=== PATIENT | female | born 1980 | race Caucasian/White ===

== ENCOUNTER 2016-12-28 07:31 | Day surgery (SDC) | payer BC ==
[~2016-12-28 07:31] MED LIST: Buffered Lidocaine 0.9% SYRIN* 5 ML/SYR SYRINGE INTRADERM ONE; Famotidine IV* 10 MG/ML 2 ML (20 mg) IV ONE
[2016-12-28] MEDS ORDERED: Famotidine IV* 10 MG/ML 2 ML (20 mg) ONE (07:35)
[2016-12-28] MEDS ORDERED: Buffered Lidocaine 0.9% SYRIN* 5 ML/SYR SYRINGE ONE (07:35)
[2016-12-28 08:03] LABS: Hematocrit 39 % (35-47); Mean Corpuscular HGB Conc 33 g/dl (31-36); Mean Corpuscular Hemoglobin 29 pg (27-31); Mean Corpuscular Volume 89 fL (80-97); Mean Platelet Volume 8 um3 (7.4-10.4); Red Blood Count 4.44 10^6/ul (4.0-5.4); Red Cell Distribution Width 14 % (10.5-15); White Blood Count 7.7 10^3/ul (3.5-10.8)
[2016-12-28] MEDS ORDERED: fentaNYL* 50 MCG/ML 2 ML VIAL (100 MCG VIAL) ONE (08:13)
[2016-12-28] MEDS ORDERED: Midazolam* 1 MG/ML 5 ML VIAL (5 MG) ONE (08:13)
[2016-12-28] MEDS ORDERED: Ketorolac INJ* 30 MG/ML 1 ML VIAL ONE (09:43)
[2016-12-28] MEDS ORDERED: Propofol* 10 MG/ML 20 ML BTL IV PUSH ONE (09:43)
[2016-12-28] MEDS ORDERED: Lidocaine 2% PF * 5 ML VIAL ONE (09:43)
[2016-12-28] MEDS ORDERED: Ondansetron INJ* 2 MG/ML VIAL ONE (09:43)
[2016-12-28] MEDS ORDERED: Chloroprocaine 2%* 20 ML VIAL ONE (09:44)
[2016-12-28] MEDS ORDERED: oxyCODONE TAB* 5 MG TAB PO PRN (10:15)
[2016-12-28] MEDS ORDERED: DiMENhydriNATE IV* 50 MG/ML VIAL IV PUSH PRN (10:15)
[2016-12-28] MEDS ORDERED: Acetaminophen TAB* 325 MG PO PRN (10:15)
[2016-12-28] MEDS ORDERED: DOXYcycline CAP(*) 100 MG PO ONE (11:00)
[2016-12-28 11:04] VITALS: BP 118/84
--- NOTE | 2016-12-28 22:24 | OP ---
DATE OF OPERATION: 12/28/16 - [facility] DATE OF : 76 SURGEON: Shelby Merchant MD ANESTHESIOLOGIST: Dr. Rodriguez. ANESTHESIA: Spinal. PRE-OP DIAGNOSIS: Missed at 8 weeks and 3 days. POST-OP DIAGNOSIS: Missed at 8 weeks and 3 days. OPERATIVE PROCEDURE: Dilation, evacuation and curettage. ESTIMATED BLOOD LOSS: 100 cc. URINE OUTPUT: 200 cc of clear yellow urine. FLUIDS: Greater than 500 cc of crystalloid. FINDINGS: Revealed intrauterine contents consistent with products of conception , complete evacuation appreciated with sharp curettage on all 4 quadrants. SPECIMEN: Intrauterine contents to sent fresh for field karyotype given recurrent loss. COMPLICATIONS: None apparent. DISPOSITION: Stable to recovery room. DESCRIPTION OF PROCEDURE: The patient was placed in dorsal lithotomy position, legs were placed in candy cane stirrups. The perineum and vagina were prepped and draped in the sterile standard fashion. The patient was identified with universal protocol for correct procedure, patient and position. Bladder was then drained using a self cath for clear yellow urine 200 cc, but this was then removed. Sterile speculum was then inserted. Cervix was grasped on the anterior lip with a single-tooth tenaculum and dilated with #11 Hegar dilator. A 10-mm curved suction curette was then applied for complete evacuation of intrauterine contents. Sharp curettage was then performed revealing complete evacuation of intrauterine contents with minimal return of blood or tissue. Single-tooth tenaculum was removed, sterile speculum was removed. All sponge, needle, instrument, and blade counts were correct throughout the case. The patient tolerated the procedure well and went to the recovery room in stable condition. The patient's blood type is B-positive. [id number]/[facility] #: [id number] [facility]
== END 2016-12-28 11:24 | disposition home or self-care (01) ==
LOC: OR 07:31
PROVIDERS: ATTEND Obstetrics & Gynecology
DX: O02.1 Missed abortion (principal); Z87.891 Personal history of nicotine dependence; R53.83 Other fatigue
CPT/HCPCS: 36415; 84144; 84443; 85025; 86850; 86900; 86901; 88233; 88262; 88280; 88291; 88305; A9270-GY; J1885; J2250; J2400; J2405; J2704; J3010

== ENCOUNTER 2017-11-30 06:03 | Inpatient (IN) | payer BC ==
[~2017-11-30 06:03] MED LIST changes: -Famotidine IV* 10 MG/ML 2 ML (20 mg) IV ONE; +Metoclopramide TAB* 10 MG PO ONE; +Scopolamine 1.5 mg* PATCH TRANSDERM ONE; +Sodium Citrate/Citric Acid* 15 ML UDC PO ONE
[2017-11-30] MEDS ORDERED: ceFOXitin 2 GM IVPREMIX* 2 GM/50 ML BAG ONE (08:11)
[2017-11-30] MEDS ORDERED: Morphine PF AMP (0.5MG/ML)* 5 MG/10 ML AMP ONE (08:52)
[2017-11-30] MEDS ORDERED: NS 0.9% IVPB ONE ×2 (09:00)
[2017-11-30] MEDS ORDERED: CEFOTAXIME IVPB ONE ×2 (09:00)
[2017-11-30] MEDS ORDERED: NS 0.9% 50 ML* 50 ML with ceFOXitin(*) 2 GM IVPB ONE ×2 (09:00)
[2017-11-30] MEDS ORDERED: Bupivacaine-MPF SPINAL* 7.5 MG/ML - 2ML AMP ONE (09:03)
[2017-11-30] MEDS ORDERED: OXYTOCIN* 10 UNITS/ML 1 ML VIAL ONE (09:35)
[2017-11-30] MEDS ORDERED: oxyCODONE/Acetamin 5/325 MG* TAB PO PRN (09:40)
[2017-11-30] MEDS ORDERED: Naloxone* 0.4 MG/ML 1 ML VIAL IV PRN (09:40)
[2017-11-30] MEDS ORDERED: Ondansetron INJ* 2 MG/ML VIAL IV PRN (09:40)
[2017-11-30] MEDS ORDERED: DiMENhydriNATE IV* 50 MG/ML VIAL IV PUSH PRN (09:40)
[2017-11-30] MEDS ORDERED: Dibucaine 1% 28.35 GM TUBE PR PRN (10:15)
[2017-11-30] MEDS ORDERED: Acetaminophen TAB* 325 MG PO PRN (10:15)
[2017-11-30] MEDS ORDERED: Witch Hazel PAD* JAR TOPICAL PRN (10:15)
[2017-11-30] MEDS ORDERED: Glycerin ADULT SUPP PR PRN (10:15)
[2017-11-30] MEDS ORDERED: Oxytocin in LR* 20 UNITS/1,000 ML BAG IVPB SCH (11:00)
[2017-11-30] MEDS: Ketorolac INJ* 30 MG/ML 1 ML VIAL IV PRN ×2 (11:27→17:52)
[2017-11-30] MEDS: Simethicone TAB* 80 MG TAB.CHEW PO SCH (21:03)
[2017-11-30] MEDS: Docusate CAP* 100 MG PO SCH (21:03)
[2017-12-01] MEDS: Ketorolac INJ* 30 MG/ML 1 ML VIAL IV PRN ×2 (00:03→08:39)
[2017-12-01] MEDS: oxyCODONE/Acetamin 5/325 MG* TAB PO PRN ×5 (04:58→20:41)
[2017-12-01 07:17] LABS: ABS Basophils 0.1 10^3/ul (0-0.2); ABS Eosinophils 0.1 10^3/ul (0-0.6); ABS Monocytes 1.1 10^3/ul (0-0.8); ABS Neutrophils 10.5 10^3/ul (1.5-7.7); ABS Nucleated RBC 0 10^3/ul; Hematocrit 30 % (35-47); Hemoglobin 10.1 g/dl (12.0-16.0); Lymphocyte % 14.8 % (25-47); Mean Corpuscular HGB Conc 33 g/dl (31-36); Mean Corpuscular Hemoglobin 28 pg (27-31); Mean Corpuscular Volume 83 fL (80-97); Mean Platelet Volume 7.2 um3 (7.4-10.4); Nucleated Red Blood Cells % 0; Platelet Count 311 10^3/ul (150-450); Red Blood Count 3.65 10^6/ul (4.00-5.40); Red Cell Distribution Width 15 % (10.5-15); White Blood Count 13.8 10^3/ul (3.5-10.8)
[2017-12-01] MEDS: Docusate CAP* 100 MG PO SCH ×4 (08:39→20:40)
[2017-12-01] MEDS: Simethicone TAB* 80 MG TAB.CHEW PO SCH ×5 (08:39→20:41)
[2017-12-01] MEDS ORDERED: Ferrous Gluconate TAB* 324 MG TAB PO SCH (09:00)
--- NOTE | 2017-12-01 09:23 | OP ---
DATE OF OPERATION: 11/30/17 - ROOM #103 DATE OF : 76 SURGEON: Shelby Merchant MD [employer] SPECIALIST: Lupis Nelson MD ANESTHESIOLOGIST: Greg Victor MD ANESTHESIA: Spinal. PRE-OP DIAGNOSIS: Intrauterine at 39 weeks, desires repeat section. POST-OP DIAGNOSIS: Intrauterine at 39 weeks, desires repeat section, delivered. OPERATIVE PROCEDURE: Repeat low transverse section. FLUIDS: 900 cc of crystalloid. URINE OUTPUT: 500 cc of clear yellow urine. ESTIMATED BLOOD LOSS: 600 cc. FINDINGS: Revealed a vertex female infant with Apgars 9 at one minute and 9 at five minutes. Weight was 7 pounds 13 ounces. Normal-appearing tubes and ovaries. Normal appearing placenta, 3-vessel cord, manual extraction intact. No adhesions. Uterine cavity without evidence of retained membranes or placental tissue. COMPLICATIONS: None apparent. DISPOSITION: Stable to the recovery room. DESCRIPTION OF PROCEDURE: The patient was placed in dorsal lithotomy position. The abdomen was prepped and draped in the sterile standard fashion. The patient was identified with universal protocol. Incision was checked for appropriate level of anesthesia using an Allis. The incision was made at the prior incisional site. This was carried down through the fascia. Fascia was scored in the midline, extended laterally and superiorly using Burrows scissors. The peritoneum was entered bluntly and the peritoneal incision was extended bluntly. The bladder blade was inserted. The lower uterine segment was identified, tented up with an Allis, incised with a scalpel. This was carried down through to the membranes. Bandage scissors were used to extend the uterine incision in the lower uterine segment superiorly and laterally. Amniotomy was created for clear fluid. Head was delivered vertex, no meconium, no nuchal cord. Anterior, posterior shoulder delivered. Vigorous female infant noted. The cord was allowed to pulse for 60 seconds, and then clamped and cut and the was handed off to awaiting chair mender. Appropriate cord blood was obtained. The placenta was then manually extracted, noted to be intact with 3-vessel cord. The uterus was left in place. The uterine cavity was explored, noted to be free of any membranes or placental tissue. Broad Allis were placed on the uterine incision. Tubes and ovaries were palpated externally and noted to palpate normally. The incision itself was reapproximated using 0 Vicryl x2 in a running fashion; first layer running locked, second layer running imbricated. Peritoneum was then clamped with Marian. After copious lavage and the hysterotomy site was confirmed to be hemostatic, peritoneum was then reapproximated using 3-0 Vicryl in a running fashion. Subfascial area was visualized and noted to be hemostatic. The fascia itself was reapproximated using 0 Vicryl x2 in a running fashion. The subcu was lavaged. Hemostasis assured and the subcutaneous space was closed off using 3-0 Polysorb in an interrupted fashion for closure of the space. The skin was then closed in a subcuticular fashion using 4-0 Monocryl. Mastisol and Steris were applied. All sponge, instrument, and blade counts were correct throughout the case. The patient tolerated the procedure well and went to the recovery room in stable condition. [id number]/[facility] #: [id number] [facility]
[2017-12-01] MEDS: Ibuprofen TAB* 600 MG PO PRN ×2 (14:57→21:05)
[2017-12-02] MEDS: oxyCODONE/Acetamin 5/325 MG* TAB PO PRN ×5 (03:20→22:38)
[2017-12-02] MEDS: Ibuprofen TAB* 600 MG PO PRN ×4 (03:20→22:37)
[2017-12-02] MEDS: Simethicone TAB* 80 MG TAB.CHEW PO SCH ×4 (07:49→21:25)
[2017-12-02] MEDS: Docusate CAP* 100 MG PO SCH ×3 (07:49→21:25)
[2017-12-03] MEDS: Ibuprofen TAB* 600 MG PO PRN ×2 (05:53→11:36)
[2017-12-03] MEDS ORDERED: Scopolamine PATCH Remove* 1 NOTE MISC PATCH OFF ONE ×2 (06:00)
[2017-12-03] MEDS: Docusate CAP* 100 MG PO SCH (07:35)
[2017-12-03] MEDS: oxyCODONE/Acetamin 5/325 MG* TAB PO PRN ×2 (07:35→11:37)
[2017-12-03] MEDS: Simethicone TAB* 80 MG TAB.CHEW PO SCH (07:36)
[2017-12-03 07:43] VITALS: BP 137/81
== END 2017-12-03 12:42 | disposition home or self-care (01) | DRG 540 ==
LOC: UNDOADMIN 06:03 → MCHOB 06:03
PROVIDERS: ADMIT Obstetrics & Gynecology; ATTEND Obstetrics & Gynecology
PROC: 4A1HX4Z Monitoring of Products of Conception, Cardiac Electrical Activity, External Approach (ICD-10-PCS; 2017-11-30)
PROC: 10D00Z1 Extraction of Products of Conception, Low, Open Approach (ICD-10-PCS; principal; 2017-11-30 07:45)
DX: O34.211 Maternal care for low transverse scar from previous cesarean delivery (principal); F17.210 Nicotine dependence, cigarettes, uncomplicated; O99.334 Smoking (tobacco) complicating childbirth; Z3A.39 39 weeks gestation of pregnancy; Z37.0 Single live birth
CPT/HCPCS: 36415; 85025; A9270-GY; J0694; J1885; J2590